=== PATIENT | female | born 1965 | race Caucasian/White ===

== ENCOUNTER → 2023-10-21 10:26 | Outpatient (REF) | payer OTHER, MEDICARE, SELFPAY | LOC: WDC 10:26 | PROVIDERS: ATTENDING PHYSICIAN Family Medicine | DX: Z12.31 Encounter for screening mammogram for malignant neoplasm of breast (principal) | CPT/HCPCS: 77063; 77067 ==

== ENCOUNTER → 2023-10-24 09:51 | Outpatient (REF) | payer OTHER, MEDICARE, SELFPAY | LOC: PAVMRI 09:51 | PROVIDERS: ATTENDING PHYSICIAN Pain Medicine Interventional Pain Medicine; FAMILY PHYSICIAN Family Medicine | DX: M54.16 Radiculopathy, lumbar region (principal) | CPT/HCPCS: 72148 ==

== ENCOUNTER → 2023-10-31 09:25 | Outpatient (REF) | payer OTHER, MEDICARE, SELFPAY | LOC: WDC 09:25 | PROVIDERS: ATTENDING PHYSICIAN Family Medicine | DX: R92.8 Other abnormal and inconclusive findings on diagnostic imaging of breast (principal) | CPT/HCPCS: 76642 ==

== ENCOUNTER → 2024-04-04 07:48 | Outpatient (REF) | payer OTHER, MEDICARE, SELFPAY | LOC: HWRAD 07:48 | PROVIDERS: ATTENDING PHYSICIAN Internal Medicine Endocrinology, Diabetes & Metabolism; FAMILY PHYSICIAN Family Medicine | DX: E04.1 Nontoxic single thyroid nodule (principal) | CPT/HCPCS: 76536 ==

== ENCOUNTER 2024-04-18 20:43 | Emergency (ER) | payer OTHER, MEDICARE, SELFPAY ==
[2024-04-18 20:44] VITALS: BP 133/62
[2024-04-18 21:26] VITALS: BP 119/48
[2024-04-18 21:55] LABS: % Basophils 0.2 % (0-2); % Immature Granulocytes 0.2 % (0-0.5); % Lymphocytes 26.3 % (20.5-51.1); % Monocytes 8.8 % (1.7-9.3); % Neutrophils 63.5 % (42.2-75.2); Absolute Eosinophils 0.1 10^3/uL (0-0.7); Absolute Lymphocytes 2.3 10^3/uL (1.2-3.4); Absolute Monocytes 0.8 10^3/uL (0.1-0.6); Absolute Neutrophils 5.6 10^3/uL (1.4-6.5); Hematocrit 36.5 % (37.0-47.0); Hemoglobin 13.1 g/dL (12.0-16.0); Mean Corp Hgb Conc. 35.9 g/dL (33.0-37.0); Mean Corpuscular Hgb 29.8 pg (27.0-31.0); Mean Platelet Volume 9.4 fL (7.4-10.4); Nucleated Red Blood Cells % 0 %; Platelet Count 174 10^3/uL (130-400); Red Cell Dist. Width 13.9 % (11.5-14.5); White Blood Cell Count 8.8 10^3/uL (4.8-10.8)
[2024-04-18 22:04] VITALS: BP 113/42
[2024-04-18 22:09] LABS: ALT (SGPT) 22 U/L (0-35); AST (SGOT) 23 U/L (14-36); Albumin 4.6 g/dl (3.5-5.0); Alkaline Phosphatase 66 U/L (38-126); Blood Urea Nitrogen 19 mg/dl (7-17); Calcium 9.5 mg/dl (8.4-10.2); Carbon Dioxide 23 mmol/L (22-30); Chloride 101 mmol/L (98-107); Glucose 154 mg/dl (70-99); Potassium 4.1 mmol/L (3.5-5.1); Sodium 139 mmol/L (135-145); Total Bilirubin 0.6 mg/dl (0.2-1.3); Total Protein 7.3 g/dl (6.3-8.2); eGFR > 60.00
[2024-04-18 22:16] LABS: Urine Albumin Negative (Neg - Trace); Urine Bilirubin Negative (Negative); Urine Character Clear (Clear); Urine Color Yellow; Urine Glucose 3+ (Negative); Urine Ketone Negative (Negative); Urine Leukocyte Negative (Negative); Urine Nitrite Negative (Negative); Urine Occult Blood Negative (Negative); Urine Specific Gravity 1.015 (<1.030); Urine Urobilinogen Negative (Neg - 1+)
[2024-04-18 22:17] LABS: NT-proBNP < 20.0 pg/ml
[2024-04-18 22:30] LABS: D-Dimer < 0.27 ug/mlFEU (0.00-0.50)
--- NOTE | 2024-04-18 22:47 | ED.GENMED ---
History of Present Illness
General
Chief Complaint: Breathing Problem
Source: patient
Time Seen by Provider: 04/18/24 21:36
History of Present Illness
History of Present Illness:
58-year-old female with past medical history of asthma/COPD, diabetes, GERD, bipolar disorder presenting to the emergency department for evaluation of shortness of breath that started last night associated with a pain to the left shoulder blade that
worsens with deep inspiration. Patient states there is no other symptoms and that this does not feel like a typical asthma or COPD flare for her. She denies any fevers or infectious symptoms, cough, hemoptysis, palpitations, chest pain, exertional
dyspnea, orthopnea, peripheral edema. Patient is also denying any recent travel, known sick contacts, use of exogenous estrogen. Family history noncontributory. Patient has not attempted any medications for relief.
Past History
Past History
ED Past Medical History: Asthma, COPD, GERD, IDDM, NIDDM, Hypothyroidism, Psychiatric and Other (Lumbar disc disease, sleep apnea, irritable bowel syndrome, GERD, anemia)
ED Past Surgical History: Gynecological (Benign breast biopsy) and Orthopedic (Right knee surgery)
Social History
Tobacco: Non-smoker
Alcohol: None
Drug: None
Personal:
Living: with family
Employment: Not employed
Family History
Family History: Diabetes; Negative Early CAD, CAD or Sudden
Review of Systems
Review of Systems
All Other Systems: ROS reviewed and negative except as documented in HPI and ROS
Phy Exam
Physical Exam
Physical Exam:
GENERAL: Alert , in no apparent distress
HEAD: NCAT
EYE: conjunctiva clear
NECK: Supple
ENT: o/p clr, mmm.
CARDIAC: Regular rate and rhythm
LUNGS: Clear breath sounds bilaterally, no acute respiratory distress, no wheezes/rales/rhonchi
NEUROLOGICAL: Alert and oriented
SKIN: Warm and dry, skin intact.
MUSCULOSKELETAL: well perfused.
PSYCH: Normal and appropriate interaction.
Scores
Heart Failure Risk
Heart Failure Risk Score: Not Applicable
Heart Score for Chest Pain Patients
STEMI patient?: Not applicable
Withdrawal Assessment of Alcohol
Withdrawal Assessment Completed?: Not applicable
Course
Orders/Labs/Results
Orders:
Orders
04/18/24 20:48
Electrocardiogram (*1) Urgent
Reason for Study: Shortness of Breath
EKG- Treatment ONCE
04/18/24 20:57
CMP [Comprehensive Metabolic Panel] Urgent
Complete Blood Count/With Diff Urgent
NT-proBNP Urgent
04/18/24 21:56
D-Dimer Urgent
04/18/24 22:08
Urinalysis Reflex To Culture Urgent
Date Specimen was Collected: 04/18/24
Time Specimen was Collected: 22:06
04/18/24 22:37
CR Chest - 2 Views Urgent
Comment:
Reason For Exam: left sided pleurisy
Abnormal Lab Results
04/18/24 04/18/24
20:57 22:08
Hct 36.5 L %
(37.0-47.0)
Absolute Monos (auto) 0.8 H 10^3/uL
(0.1-0.6)
BUN 19 H mg/dl
(7-17)
Glucose 154 H mg/dl
(70-99)
Urine Glucose 3+ A
(Negative)
04/18/24 20:57
04/18/24 20:57
Vital Signs
Initial and Last Documented VS:
Initial Vital Signs
Temp Pulse Resp BP Pulse Ox
98.2 F 91 16 133/62 98
04/18/24 20:44 04/18/24 20:44 04/18/24 20:44 04/18/24 20:44 04/18/24 20:44
Last Documented Vital Signs
Temp Pulse Resp BP Pulse Ox
98.2 F 80 20 113/42 98
04/18/24 20:44 04/18/24 23:00 04/18/24 23:22 04/18/24 22:04 04/18/24 23:21
MDM/Problems Addressed
Differential Diagnosis Includes:
pleurisy, COPD/asthma, pneumonia, PE, CHF, atypical ACS
MDM/Problems Addressed:
58-year-old female presenting to the emergency department for evaluation of shortness of breath with some left posterior pleurisy. Patient is hemodynamically stable and in no acute distress. Labs were initiated in triage and are all reassuring.
Based off of the pleurisy I did add a D-dimer onto patient's workup. Will order imaging based off D-dimer. Disposition pending.
Chronic conditions affecting care: COPD
*Radiology
Radiology exam reviewed: preliminary read by ED provider
*Pulse Oximetry
Patient hypoxic: no
*EKG
Interpreted by ED Provider?: Yes
Comparison EKG: no changes
Heart Rate: 84
Rate: normal
Rhythm: sinus
Ischemia: no ischemia
*Sales Agent Interpretation
Rate: normal
Rhythm: sinus
*Critical Care Note
Total Time (30-74mins, 75-104mins- exclusive of procedures): Not Applicable
Comment
Comment:
D-dimer is negative. Chest x-ray ordered. Disposition following chest x-ray.
Patient Management
Social determinants of health affecting care: Living situation and Strong social support
Escalation/DeEscalation of care consider admission/obs:
Patient's chest x-ray without any acute abnormalities. Her labs are all reassuring. At this time stable for discharge home and close outpatient follow-up with primary care provider. Aware of return precautions to the ER.
ED Attending Note
-
Portions of this chart may have been created with voice recognition software.� Occasional wrong word or��sound alike� substitutions may have occurred due to the inherent limitations of voice recognition software.
Discharge Plan
Departure
Patient Disposition: Home (Routine Discharge)
Date of Disposition: 04/18/24
Time of Disposition: 23:23
Patient with high blood pressure during this ER visit?: No
Discharge Problem:
Shortness of breath
Instructions: Shortness of Breath (Dyspnea) (DC)
Prescriptions:
No Action
metformin 1,000 MG tablet
1,000 mg PO BID
cabergoline 0.5 MG tablet
0.25 mg PO SA
levothyroxine 25 MCG tablet
75 mcg PO DAILY
multivitamin 1 EACH tablet
1 ea PO DAILY
beclomethasone dipropionate [Qvar] 8.7 GM aerosol
2 puff IH DAILY
ferrous sulfate [iron] 325 MG tablet
325 mg PO DAILY
esomeprazole magnesium [Nexium] 40 MG capsule,delayed release(DR/EC)
40 mg PO DAILY
albuterol sulfate 1 PUFF HFA aerosol inhaler
2 puff inhalation R Q4HPRN PRN (Reason: asthma)
repaglinide 1 MG tablet
1 mg PO MEALS
aripiprazole [Abilify] 30 MG tablet
30 mg PO HS
docosahexaenoic acid-epa 1 CAP capsule
2 cap PO DAILY
empagliflozin [Jardiance] 25 MG tablet
25 mg PO DAILY
insulin glargine U-300 conc [Toujeo SoloStar U-300 Insulin] 300 UNIT/ML insulin pen
44 unit SC HS
tramadol 50 MG tablet
50 mg PO Q6HPRN PRN (Reason: pain) Qty: 10 0RF
diazepam 5 MG tablet
5 mg PO TIDPRN PRN (Reason: spasm) Qty: 9 0RF
Referrals:
Ignacio Worthy DO [Family Provider] -
Interventions
Interventions:
*General Assessment Last Done: 04/18/24 20:44
ED- Fall Risk Assessment Last Done: 04/18/24 23:22
*ED COVID-19 Vaccine History Last Done: 04/18/24 20:44
ED- Cardiac Assessment Last Done: 04/18/24 23:22
ED- Pulmonary Assessment Last Done: 04/18/24 23:22
Discharge Date and Time
Print Language: ICELANDIC
[2024-04-18 23:21] VITALS: BMI 36.4
[2024-04-18 23:27] VITALS: BP 115/63
[2024-04-18] MEDS: TYLENOL 650 MG PO (23:43)
== END 2024-04-18 23:47 | disposition home or self-care (01) ==
LOC: EMR 20:43
PROVIDERS: Emergency Medicine; Physician Assistant Medical; EMERGENCY PHYSICIAN Emergency Medicine; FAMILY PHYSICIAN Family Medicine
DX: R06.02 Shortness of breath (principal); J44.89 Other specified chronic obstructive pulmonary disease; K21.9 Gastro-esophageal reflux disease without esophagitis; F31.9 Bipolar disorder, unspecified; E11.9 Type 2 diabetes mellitus without complications
CPT/HCPCS: 99285; 71046; 80053; 81003; 83880; 85025; 85379; 93005

== ENCOUNTER → 2024-05-25 09:48 | Outpatient (REF) | payer OTHER, MEDICARE, SELFPAY | LOC: HWRAD 09:48 | PROVIDERS: ATTENDING PHYSICIAN Nurse Practitioner Obstetrics & Gynecology; FAMILY PHYSICIAN Family Medicine | DX: N93.9 Abnormal uterine and vaginal bleeding, unspecified (principal) | CPT/HCPCS: 76830; 76856 ==

== ENCOUNTER → 2024-06-03 07:11 | Outpatient (REF) | payer OTHER, MEDICARE, SELFPAY | LOC: MRI 3T 07:11 | PROVIDERS: ATTENDING PHYSICIAN Psychiatry & Neurology Neurology; FAMILY PHYSICIAN Family Medicine | DX: G20.C Parkinsonism, unspecified (principal) | CPT/HCPCS: 70551 ==

== ENCOUNTER → 2024-06-11 10:44 | Outpatient (REF) | payer OTHER, MEDICARE, SELFPAY | LOC: WDC 10:44 | PROVIDERS: ATTENDING PHYSICIAN Nurse Practitioner Obstetrics & Gynecology; FAMILY PHYSICIAN Family Medicine | DX: R92.2 Inconclusive mammogram (principal) | CPT/HCPCS: 76641 ==

== ENCOUNTER 2024-07-26 22:26 | Emergency (ER) | payer OTHER, MEDICARE, SELFPAY ==
[2024-07-26 23:23] VITALS: BP 122/60
[2024-07-27 02:37] VITALS: BP 124/61
[2024-07-27 02:40] VITALS: BMI 34.0
[2024-07-27 03:00] VITALS: BP 120/49
[2024-07-27 04:00] VITALS: BP 111/77
--- NOTE | 2024-07-27 04:09 | ED.GENMED ---
History of Present Illness
General
Chief Complaint: Breathing Problem
Source: patient and family
Exam Limitations: none
Time Seen by Provider: 07/27/24 03:32
Nursing documentation reviewed up to this point in time: agreed with
History of Present Illness
History of Present Illness:
Pleasant 58-year-old female with known history of asthma presents with wheezing and asthma symptoms that have been much worse than normal. She states that she has been using her inhalers without relief of symptoms. This exacerbation has been going
on for 3 days. She states that she is coughing up yellowish sputum. Denies fever or chills. Reports no nausea or vomiting. Denies chest pain. Patient is diabetic and she is on insulin and oral agents. She states that she has a continuous
blood glucose monitor
Past History
Past History
ED Past Medical History: Asthma, COPD, GERD, IDDM, NIDDM, Hypothyroidism, Psychiatric and Other (Lumbar disc disease, sleep apnea, irritable bowel syndrome, GERD, anemia)
ED Past Surgical History: Gynecological (Benign breast biopsy) and Orthopedic (Right knee surgery)
Social History
Tobacco: Non-smoker
Alcohol: None
Drug: None
Personal:
Living: with family
Employment: Not employed
Family History
Family History: Diabetes; Negative Early CAD, CAD or Sudden
Review of Systems
Review of Systems
Allergies reviewed?: Yes
All Other Systems: ROS reviewed and negative except as documented in HPI and ROS
Constitutional: Reports no symptoms
EENT: Reports no symptoms
Respiratory: Reports trouble breathing
Cardiac: Reports no symptoms
ABD/GI: Reports no symptoms
: Reports no symptoms
Musculoskeletal: Reports no symptoms
Skin: Reports no symptoms
Neurological: Reports no symptoms
Endocrine: Reports no symptoms
Hematologic/Lymphatic: Reports no symptoms
Psychiatric: Reports no symptoms
Phy Exam
General Physical Exam
General Presentation: well appearing and no apparent distress
General Skin: warm and dry
General Habitus: normal
General Mental: alert
General Hydration: appears well hydrated
ENT Exam
ENT Exam: EOMI, pharynx normal, neck supple and normocephalic
Eye Exam
Eye Exam: PERRL, cornea clear and conjunctiva normal
Cardiovascular Exam
Cardiovascular Exam: regular rate/rhythm, no edema, no murmur and normal peripheral pulses
Pulmonary Exam
Pulmonary Exam: generalized wheezing
Breath Sounds: Wheeze: right upper (Right upper is worse than normal the rest)
Gastrointestinal Exam
Gastrointestinal Exam: normal bowel sounds, non tender, soft, no organomegaly, no pulsatile mass and non distended
Neurological Exam
Neurological Exam: alert, oriented x3, no motor deficits and speech normal
Musculoskeletal Exam
Musculoskeletal Exam: full ROM and no edema
Skin Exam
Skin Exam: normal color, warm/dry, no rash and no petechia
Psychiatric Exam
Psychiatric Exam: normal mood/affect
Scores
Heart Failure Risk
Heart Failure Risk Score: Not Applicable
Course
Orders/Labs/Results
Orders:
Orders
07/27/24 03:59
Dexamethasone Pf [Decadron] 10 mg PO NOW STA
Ipratropium/Albuterol Sulfate [Duoneb] 3 ml INH R NOW ONE
CR Chest - 2 Views Urgent
Comment:
Reason For Exam: dyspnea
Vital Signs
Initial and Last Documented VS:
Initial Vital Signs
Temp Pulse Resp BP Pulse Ox
98.4 F 89 16 122/60 98
07/26/24 23:23 07/26/24 23:23 07/26/24 23:23 07/26/24 23:23 07/26/24 23:23
Last Documented Vital Signs
Temp Pulse Resp BP Pulse Ox
98.4 F 89 16 119/60 93
07/26/24 23:23 07/26/24 23:23 07/26/24 23:23 07/27/24 06:00 07/27/24 06:01
*Critical Care Note
Total Time (30-74mins, 75-104mins- exclusive of procedures): Not Applicable
Update Note
Update Note:
Patient states that she is feeling somewhat better. She has enough albuterol and Breo at home. I will give her prednisone. She does have a continuous glucose monitor and we will adjust her insulin accordingly.
ED Attending Note
-
Portions of this chart may have been created with voice recognition software.� Occasional wrong word or��sound alike� substitutions may have occurred due to the inherent limitations of voice recognition software.
Discharge Plan
Departure
Patient Disposition: Home (Routine Discharge)
Date of Disposition: 07/27/24
Time of Disposition: 06:10
Patient with high blood pressure during this ER visit?: No
Discharge Problem:
Acute bronchitis
Instructions: Acute Bronchitis, Adult (DC)
Prescriptions:
New
prednisone 50 mg tablet
50 mg PO DAILY Qty: 4 0RF
No Action
metformin 1,000 MG tablet
1,000 mg PO BID
cabergoline 0.5 MG tablet
0.25 mg PO SA
levothyroxine 25 MCG tablet
75 mcg PO DAILY
multivitamin 1 EACH tablet
1 ea PO DAILY
beclomethasone dipropionate [Qvar] 8.7 GM aerosol
2 puff IH DAILY
ferrous sulfate [iron] 325 MG tablet
325 mg PO DAILY
esomeprazole magnesium [Nexium] 40 MG capsule,delayed release(DR/EC)
40 mg PO DAILY
albuterol sulfate 1 PUFF HFA aerosol inhaler
2 puff inhalation R Q4HPRN PRN (Reason: asthma)
repaglinide 1 MG tablet
1 mg PO MEALS
aripiprazole [Abilify] 30 MG tablet
30 mg PO HS
docosahexaenoic acid-epa 1 CAP capsule
2 cap PO DAILY
empagliflozin [Jardiance] 25 MG tablet
25 mg PO DAILY
insulin glargine U-300 conc [Toujeo SoloStar U-300 Insulin] 300 UNIT/ML insulin pen
44 unit SC HS
tramadol 50 MG tablet
50 mg PO Q6HPRN PRN (Reason: pain) Qty: 10 0RF
diazepam 5 MG tablet
5 mg PO TIDPRN PRN (Reason: spasm) Qty: 9 0RF
Referrals:
Ignacio Worthy DO [Family Provider] - Call in 1-3 days for appt
Activity Restrictions/Additional Instructions:
It was a pleasure meeting you and taking part in your care. We hope for your continued healing and wellness.
Please read discharge instructions in their entirety. However, they are for general education and may not describe your exact diagnosis at discharge. Information on your ER visit and medical conditions were discussed with you along with appropriate
follow up information...
If indicated, please take your medications as instructed and indicated on discharge paperwork.
Please schedule a follow up appointment as directed. Call to schedule an appointment
Please return to the emergency department with ANY change in, persisting, or worsening of symptoms. If any of your symptoms do not improve, or persist, or become more severe within 6-12 hours, please return to the emergency department for further
care.
Please return to the emergency department if you develop a headache, neck pain/stiffness, fever greater than 100.4F, chest pain, shortness of breath, persistent nausea, vomiting, slurred speech, difficulty walking, numbness/tingling, weakness, signs
of infection or any other symptoms that are worrisome to you.
If you have any questions or concerns please do not hesitate to call the Hospital at or E-mail me directly at [email or web address]
Interventions
Interventions:
*Risk Screen - Suicide Last Done: 07/26/24 23:23
*General Assessment Last Done: 07/27/24 02:35
*Neglect/Abuse Screening Last Done: 07/26/24 23:23
ED- Fall Risk Assessment Last Done: 07/27/24 02:35
*ED COVID-19 Vaccine History Last Done: 07/26/24 23:23
*Nursing Disposition Last Done: 07/27/24 06:11
ED- Cardiac Assessment Last Done: 07/27/24 02:35
ED- Pulmonary Assessment Last Done: 07/27/24 02:35
Discharge Date and Time
Discharge Date/Time: 07/27/24 06:18
Print Language: ZAMBIAN
[2024-07-27] MEDS: DUONEB 3 ML INH (04:16)
[2024-07-27] MEDS: DECADRON 10 MG PO (04:16)
[2024-07-27 05:00] VITALS: BP 112/50
[2024-07-27 06:00] VITALS: BP 119/60
== END 2024-07-27 06:18 | disposition home or self-care (01) ==
LOC: EMR 22:26
PROVIDERS: EMERGENCY PHYSICIAN Student in an Organized Health Care Education/Training Program; FAMILY PHYSICIAN Family Medicine
DX: J20.9 Acute bronchitis, unspecified (principal); J45.909 Unspecified asthma, uncomplicated
CPT/HCPCS: 99283; 94640; 71046

== ENCOUNTER → 2024-10-12 09:18 | Outpatient (REF) | payer OTHER, MEDICARE, SELFPAY | LOC: HWRAD 09:18 | PROVIDERS: ATTENDING PHYSICIAN Specialist; FAMILY PHYSICIAN Family Medicine | DX: M54.12 Radiculopathy, cervical region (principal); M50.30 Other cervical disc degeneration, unspecified cervical region | CPT/HCPCS: 72050 ==

== ENCOUNTER → 2024-10-25 08:46 | Outpatient (REF) | payer OTHER, MEDICARE, SELFPAY | LOC: WDC 08:46 | PROVIDERS: ATTENDING PHYSICIAN Family Medicine | DX: Z12.31 Encounter for screening mammogram for malignant neoplasm of breast (principal) | CPT/HCPCS: 77063; 77067 ==

== ENCOUNTER 2024-10-28 18:04 | Emergency (ER) | payer OTHER, MEDICARE, SELFPAY ==
[2024-10-28 18:07] VITALS: BP 133/50
--- NOTE | 2024-10-28 18:59 | ED.MUSCINJ ---
HPI-Injury
General
Chief Complaint: Musculo-Skeletal Complaint
Source: patient
Exam Limitations: none
Time Seen by Provider: 10/28/24 18:49
Nursing documentation reviewed up to this point in time: agreed with
History of Present Illness-Injury
Initial Injury comments:
59-year-old female IDDM, hypothyroid, anxiety, bipolar disorder, depression, asthma, GERD presents for pain in the posterior left thigh and left calf areas which start yesterday. She is having trouble stepping up the step due to the pain. She
denies back pain. She denies any overuse or injury. No recent travel. She tried Advil, Tylenol, heat with no relief of the pain.
Past History
Past History
ED Past Medical History: Asthma, COPD, GERD, IDDM, NIDDM, Hypothyroidism, Psychiatric and Other (Lumbar disc disease, sleep apnea, irritable bowel syndrome, GERD, anemia)
ED Past Surgical History: Gynecological (Benign breast biopsy) and Orthopedic (Right knee surgery)
Social History
Tobacco: Non-smoker
Alcohol: None
Drug: None
Personal:
Living: with family
Employment: Not employed
Family History
Family History: Diabetes; Negative Early CAD, CAD or Sudden
Review of Systems
Review of Systems
Allergies reviewed?: Yes
All Other Systems: ROS reviewed and negative except as documented in HPI and ROS
Constitutional: Denies fever
Respiratory: Denies trouble breathing
Cardiac: Denies chest pain
ABD/GI: Denies abdominal pain
: Denies incontinence
Musculoskeletal: Reports neck pain (Chronic neck pain, gets neck injections from pain management, last injections were 2 days ago.) and back pain (Chronic low back pain, last epidural was 2 months ago, she denies low back pain at this time)
Skin: Reports no symptoms
Neurological: Reports no symptoms
Phy Exam
Physical Exam
Physical Exam:
GENERAL: No acute distress. A&Ox3.
CONSTITUTIONAL: Afebrile.
EYES: clear, conjunctivae normal
ENMT: moist mucus membranes
RESPIRATORY: Regular respirations, nonlabored, lungs clear.
CARDIOVASCULAR: Regular rate and rhythm, no murmurs, no rubs.
GI: Soft, nontender, normal BS
MUSCULOSKELETAL: Moves with ease. Well perfused. Deep palpation of posterior left thigh immediately reproduces pain. No calf tenderness. No swelling or erythema. Distal neurovascular intact.
SKIN: Warm, dry, pink
PSYCH: Normal mood and affect. Well kept, interactive and appropriate
NEUROLOGIC: Awake, alert and oriented. No focal neurological deficits
Injury Course
Orders/Labs/Results
Orders:
Orders
10/28/24 18:59
US Periph Venous LOWER Ext LT Urgent
Comment:
Reason For Exam: pain posterior thigh and calf
10/28/24 20:28
Lidocaine [Lidocaine 4% Patch] 1 patch TOPICAL NOW STA
Apply Lidocaine patch(s) to:: Posterior left thigh
MDM/Problems Addressed
Differential Diagnosis Includes:
sciatica, DVT, muscle strain
MDM/Problems Addressed:
59-year-old female IDDM, hypothyroid, anxiety, bipolar disorder, depression, asthma, GERD presents for pain in the posterior left thigh and left calf areas which start yesterday. She is having trouble stepping up the step due to the pain. She
denies back pain. She denies any overuse or injury. No recent travel. She tried Advil, Tylenol, heat with no relief of the pain.
8:30 PM:
Ultrasound negative for DVT
Due to patient having diabetes and she states her blood sugar was in the 300s earlier today, she cannot have prednisone
No back pain, tenderness, no tenderness to buttock, immediately tender mid posterior thigh, no calf tenderness, less likely sciatica.
Since the pain just started yesterday I informed her that she could have pulled a hamstring and she should try cold compress to the area since that heating pad did not help, I gave her a written prescription for lidocaine patches and applied when
here tonight and encouraged her to give it some time.
Avoid activity that aggravates the pain.
She will follow-up with her doctor if she is not improving within the next week.
*Critical Care Note
Total Time (30-74mins, 75-104mins- exclusive of procedures): Not Applicable
ED Attending Note
-
Portions of this chart may have been created with voice recognition software.� Occasional wrong word or��sound alike� substitutions may have occurred due to the inherent limitations of voice recognition software.
Discharge Plan
Departure
Patient Disposition: Home (Routine Discharge)
Date of Disposition: 10/28/24
Time of Disposition: 20:29
Patient with high blood pressure during this ER visit?: No
Condition: Good
Discharge Problem:
Acute thigh pain
Instructions: Muscle Strain (DC), Using Cold for Pain, Sciatica - ED discharge instructions
Prescriptions:
New
lidocaine 4 % adhesive patch,medicated
1 patch topical DAILY PRN (Reason: Pain) Qty: 10 0RF
No Action
metformin 1,000 MG tablet
1,000 mg PO BID
cabergoline 0.5 MG tablet
0.25 mg PO SA
levothyroxine 25 MCG tablet
75 mcg PO DAILY
multivitamin 1 EACH tablet
1 ea PO DAILY
beclomethasone dipropionate [Qvar] 8.7 GM aerosol
2 puff IH DAILY
ferrous sulfate [iron] 325 MG tablet
325 mg PO DAILY
esomeprazole magnesium [Nexium] 40 MG capsule,delayed release(DR/EC)
40 mg PO DAILY
albuterol sulfate 1 PUFF HFA aerosol inhaler
2 puff inhalation R Q4HPRN PRN (Reason: asthma)
repaglinide 1 MG tablet
1 mg PO MEALS
aripiprazole [Abilify] 30 MG tablet
30 mg PO HS
docosahexaenoic acid-epa 1 CAP capsule
2 cap PO DAILY
empagliflozin [Jardiance] 25 MG tablet
25 mg PO DAILY
insulin glargine U-300 conc [Toujeo SoloStar U-300 Insulin] 300 UNIT/ML insulin pen
44 unit SC HS
tramadol 50 MG tablet
50 mg PO Q6HPRN PRN (Reason: pain) Qty: 10 0RF
diazepam 5 MG tablet
5 mg PO TIDPRN PRN (Reason: spasm) Qty: 9 0RF
prednisone 50 mg tablet
50 mg PO DAILY Qty: 4 0RF
Referrals:
Ignacio Worthy, DO [Family Provider] - As needed
Activity Restrictions/Additional Instructions:
As we discussed, your ultrasound is negative for a clot.
You may have pulled your hamstring muscle in which case cold compress 20 minutes off and on for the next 2 days may help as well as ibuprofen 600 mg, with food
If it is not a pulled muscle you may have sciatica which is an inflammatory problem and the ibuprofen and alternating warm compress with cold compress may help.
Lidocaine patch to the area daily
See your doctor in 1 week if you are not improving within the next week
Interventions
Interventions:
*Risk Screen - Suicide Last Done: 10/28/24 18:09
*General Assessment Last Done: 10/28/24 18:09
*Neglect/Abuse Screening Last Done: 10/28/24 18:09
*ED COVID-19 Vaccine History Last Done: 10/28/24 18:09
*Nursing Disposition Last Done: 10/28/24 20:47
ED-Musculoskeletal Assessment Last Done: 10/28/24 20:40
Discharge Date and Time
Discharge Date/Time: 10/28/24 20:47
Print Language: CYPRIOT
[2024-10-28 19:57] VITALS: BP 101/43
[2024-10-28] MEDS: LIDOCAINE 4% PATCH 1 PATCH TOPICAL (20:35)
== END 2024-10-28 20:47 | disposition home or self-care (01) ==
LOC: EMR 18:04
PROVIDERS: EMERGENCY PHYSICIAN Emergency Medicine; FAMILY PHYSICIAN Family Medicine
DX: M79.652 Pain in left thigh (principal); E03.9 Hypothyroidism, unspecified; E11.9 Type 2 diabetes mellitus without complications; K21.9 Gastro-esophageal reflux disease without esophagitis; J44.89 Other specified chronic obstructive pulmonary disease; Z79.4 Long term (current) use of insulin; G47.30 Sleep apnea, unspecified
CPT/HCPCS: 99284; 93971

== ENCOUNTER → 2024-11-11 11:57 | Outpatient (REF) | payer OTHER, MEDICARE, SELFPAY | LOC: MRI 3T 11:57 | PROVIDERS: ATTENDING PHYSICIAN Specialist; FAMILY PHYSICIAN Family Medicine | DX: M54.12 Radiculopathy, cervical region (principal); M50.30 Other cervical disc degeneration, unspecified cervical region | CPT/HCPCS: 72141 ==

== ENCOUNTER → 2024-12-28 09:25 | Outpatient (REF) | payer OTHER, MEDICARE, SELFPAY | LOC: EMG 09:25 | PROVIDERS: ATTENDING PHYSICIAN Orthopaedic Surgery Hand Surgery; FAMILY PHYSICIAN Family Medicine | DX: M79.642 Pain in left hand (principal); R20.0 Anesthesia of skin | CPT/HCPCS: 95886; 95909 ==

== ENCOUNTER → 2025-01-25 08:43 | Outpatient (REF) | payer OTHER, SELFPAY | LOC: HWRAD 08:43 | PROVIDERS: ATTENDING PHYSICIAN Otolaryngology Facial Plastic Surgery; FAMILY PHYSICIAN Family Medicine | DX: J32.2 Chronic ethmoidal sinusitis (principal); J34.3 Hypertrophy of nasal turbinates | CPT/HCPCS: 70486 ==

== ENCOUNTER 2025-02-16 18:52 | Emergency (ER) | payer OTHER, SELFPAY ==
[2025-02-16 19:04] VITALS: BP 113/64
--- NOTE | 2025-02-16 19:27 | ED.GENMED ---
History of Present Illness
General
Chief Complaint: Cardiac Symptoms
Source: patient
Exam Limitations: none
Time Seen by Provider: 02/16/25 19:27
History of Present Illness
History of Present Illness:
59-year-old female long history of episodes of heart racing that would last for 15 to 20 seconds. Been going on for 10 years. Has seen cardiology twice. Has had previous episodes. Usually happens every other day for 15 to 20 seconds. Today
happened multiple times. Some lightheadedness with the. No chest pain, shortness of breath or other complaints.
Past History
Past History
ED Past Medical History: Asthma, COPD, GERD, IDDM, NIDDM, Hypothyroidism, Psychiatric and Other (Lumbar disc disease, sleep apnea, irritable bowel syndrome, GERD, anemia)
ED Past Surgical History: Gynecological (Benign breast biopsy) and Orthopedic (Right knee surgery)
Social History
Tobacco: Non-smoker
Alcohol: None
Drug: None
Personal:
Living: with family
Employment: Not employed
Family History
Family History: Diabetes; Negative Early CAD, CAD or Sudden
Review of Systems
Review of Systems
All Other Systems: Not applicable
Constitutional: Denies fever
Respiratory: Denies trouble breathing
Cardiac: Denies chest pain or syncope
Phy Exam
Physical Exam
Physical Exam:
GENERAL: Alert and oriented in no apparent distress
EYE: Orbits normal.
NECK: Supple, no significant adenopathy.
ENT: Pharynx without erythema
CARDIAC: Regular rate and rhythm without any obvious murmurs.
LUNGS: Clear breath sounds,normal
ABDOMEN: Soft, without focal tenderness or distention
NEUROLOGICAL: Alert and oriented , grossly non-focal
SKIN: Warm and dry, no rash or lesion, no discoloration, skin intact.
MUSCULOSKELETAL: No edema,no deformity.Good color
PSYCH: Normal and appropriate interaction.
Course
Orders/Labs/Results
Orders:
Orders
02/16/25 18:54
Electrocardiogram (*1) Urgent
Reason for Study: Chest Pain
EKG- Treatment ONCE
02/16/25 19:51
Basic Metabolic Panel Urgent
Complete Blood Count/With Diff Urgent
TSH Reflex To Free T4 Urgent
02/16/25 20:23
CMP [Comprehensive Metabolic Panel] Urgent
Abnormal Lab Results
02/16/25 02/16/25
19:51 20:23
Hct 36.2 L %
(37.0-47.0)
BUN 18 H mg/dl
(7-17)
Glucose 140 H mg/dl 122 H mg/dl
(70-99) (70-99)
02/16/25 19:51
02/16/25 20:23
Vital Signs
Initial and Last Documented VS:
Initial Vital Signs
Temp Pulse Resp BP Pulse Ox
98.2 F 87 16 113/64 98
02/16/25 19:04 02/16/25 19:04 02/16/25 19:04 02/16/25 19:04 02/16/25 19:04
Last Documented Vital Signs
Temp Pulse Resp BP Pulse Ox
98.2 F 82 15 118/57 97
02/16/25 19:04 02/16/25 21:30 02/16/25 21:15 02/16/25 21:00 02/16/25 21:30
MDM/Problems Addressed
Differential Diagnosis Includes:
Patient describing intermittent episodes of heart racing brief periods. Has been a long-term issue but more frequent. While I was in the room she did have a PAC which she stated was the sensation. No chest pain no shortness of breath, not
describing ischemic symptoms. Will monitor check labs electrolytes thyroid.
*Pulse Oximetry
SaO2: 98
Oxygen Mode of Delivery: Room air
Patient hypoxic: no
*Coffee Farmer Interpretation
Rate: normal
Interpretation: normal
Heart Rate: 80
Rhythm: sinus
*Critical Care Note
Total Time (30-74mins, 75-104mins- exclusive of procedures): Not Applicable
Update Note
Update Note:
Patient had 1 PAC while I was in the room. No other arrhythmias. Stable for discharge to follow-up
ED Attending Note
-
Portions of this chart may have been created with voice recognition software.� Occasional wrong word or��sound alike� substitutions may have occurred due to the inherent limitations of voice recognition software.
Discharge Plan
Departure
Patient Disposition: Home (Routine Discharge)
Date of Disposition: 02/16/25
Time of Disposition: 22:12
Patient with high blood pressure during this ER visit?: No
Discharge Problem:
Palpitations, PACs
Instructions: Heart Palpitations
Prescriptions:
No Action
metformin 1,000 MG tablet
1,000 mg PO BID
cabergoline 0.5 MG tablet
0.25 mg PO SA
levothyroxine 25 MCG tablet
75 mcg PO DAILY
multivitamin 1 EACH tablet
1 ea PO DAILY
beclomethasone dipropionate [Qvar] 8.7 GM aerosol
2 puff IH DAILY
ferrous sulfate [iron] 325 MG tablet
325 mg PO DAILY
esomeprazole magnesium [Nexium] 40 MG capsule,delayed release(DR/EC)
40 mg PO DAILY
albuterol sulfate 1 PUFF HFA aerosol inhaler
2 puff inhalation R Q4HPRN PRN (Reason: asthma)
repaglinide 1 MG tablet
1 mg PO MEALS
aripiprazole [Abilify] 30 MG tablet
30 mg PO HS
docosahexaenoic acid-epa 1 CAP capsule
2 cap PO DAILY
empagliflozin [Jardiance] 25 MG tablet
25 mg PO DAILY
insulin glargine U-300 conc [Toujeo SoloStar U-300 Insulin] 300 UNIT/ML insulin pen
44 unit SC HS
tramadol 50 MG tablet
50 mg PO Q6HPRN PRN (Reason: pain) Qty: 10 0RF
diazepam 5 MG tablet
5 mg PO TIDPRN PRN (Reason: spasm) Qty: 9 0RF
prednisone 50 mg tablet
50 mg PO DAILY Qty: 4 0RF
lidocaine 4 % adhesive patch,medicated
1 patch topical DAILY PRN (Reason: Pain) Qty: 10 0RF
Referrals:
UNKNOWN - PT DOES,NOT KNOW [Family Provider]
Activity Restrictions/Additional Instructions:
Call your auto garage mechanic Tuesday for close follow-up
Interventions
Interventions:
*Risk Screen - Suicide Last Done: 02/16/25 19:38
*General Assessment Last Done: 02/16/25 19:38
*Neglect/Abuse Screening Last Done: 02/16/25 19:38
*ED- Fall Risk Assessment Last Done: 02/16/25 19:38
*ED COVID-19 Vaccine History Last Done: 02/16/25 19:38
ED- Cardiac Assessment Last Done: 02/16/25 19:40
ED- Pulmonary Assessment Last Done: 02/16/25 19:40
Discharge Date and Time
Print Language: SAMMARINESE
[2025-02-16 19:38] VITALS: BMI 33.1
[2025-02-16 19:39] VITALS: BP 137/47
[2025-02-16 20:00] VITALS: BP 124/58
[2025-02-16 20:08] LABS: Hematocrit 36.2 % (37.0-47.0); Hemoglobin 12.6 g/dL (12.0-16.0); Mean Corp Hgb Conc. 34.8 g/dL (33.0-37.0); Mean Corpuscular Volume 84.0 fL (81.0-99.0); Nucleated Red Blood Cells % 0 %; Red Cell Dist. Width 13.6 % (11.5-14.5)
[2025-02-16 20:16] LABS: Platelet Count 169 10^3/uL (130-400)
[2025-02-16 20:24] LABS: Blood Urea Nitrogen 18 mg/dl (7-17); Calcium 9.8 mg/dl (8.4-10.2); Carbon Dioxide 29 mmol/L (22-30); Chloride 102 mmol/L (98-107); Estimated Creatinine Clearance 68 ml/min; Glucose 140 mg/dl (70-99); Sodium 141 mmol/L (135-145); eGFR > 60.00
[2025-02-16 20:47] LABS: ALT (SGPT) 24 U/L (0-35); AST (SGOT) 29 U/L (14-36); Albumin 4.5 g/dl (3.5-5.0); Alkaline Phosphatase 59 U/L (38-126); Blood Urea Nitrogen 17 mg/dl (7-17); Calcium 9.4 mg/dl (8.4-10.2); Carbon Dioxide 30 mmol/L (22-30); Chloride 104 mmol/L (98-107); Estimated Creatinine Clearance 68 ml/min; Glucose 122 mg/dl (70-99); Potassium 3.8 mmol/L (3.5-5.1); Sodium 139 mmol/L (135-145); Total Protein 7.4 g/dl (6.3-8.2); eGFR > 60.00
[2025-02-16 21:00] VITALS: BP 118/57
[2025-02-16 22:00] VITALS: BP 126/55
== END 2025-02-16 22:46 | disposition home or self-care (01) ==
LOC: EMR 18:52
PROVIDERS: EMERGENCY PHYSICIAN Emergency Medicine
DX: R00.2 Palpitations (principal); I49.1 Atrial premature depolarization; E03.9 Hypothyroidism, unspecified; E11.9 Type 2 diabetes mellitus without complications; G47.30 Sleep apnea, unspecified; J44.89 Other specified chronic obstructive pulmonary disease; Z79.4 Long term (current) use of insulin
CPT/HCPCS: 99284; 80048; 80053; 84443; 85025; 93005

== ENCOUNTER 2025-03-07 20:43 | Emergency (ER) | payer OTHER, SELFPAY ==
[2025-03-07 20:58] VITALS: BP 121/48
[2025-03-07 21:36] LABS: Hematocrit 34.7 % (37.0-47.0); Hemoglobin 12.1 g/dL (12.0-16.0); Mean Corp Hgb Conc. 34.9 g/dL (33.0-37.0); Mean Corpuscular Volume 84.0 fL (81.0-99.0); Nucleated Red Blood Cells % 0 %; Platelet Count 160 10^3/uL (130-400); Red Cell Dist. Width 13.6 % (11.5-14.5)
[2025-03-07 22:04] LABS: ALT (SGPT) 22 U/L (0-35); AST (SGOT) 22 U/L (14-36); Albumin 4.8 g/dl (3.5-5.0); Alkaline Phosphatase 58 U/L (38-126); Blood Urea Nitrogen 17 mg/dl (7-17); Calcium 9.4 mg/dl (8.4-10.2); Carbon Dioxide 24 mmol/L (22-30); Chloride 104 mmol/L (98-107); Glucose 110 mg/dl (70-99); Potassium 3.9 mmol/L (3.5-5.1); Sodium 140 mmol/L (135-145); Total Protein 7.6 g/dl (6.3-8.2); eGFR > 60.00
--- NOTE | 2025-03-08 00:19 | ED.GENMED ---
History of Present Illness
General
Chief Complaint: Skin Problem
Source: patient
Exam Limitations: none
Time Seen by Provider: 03/08/25 00:17
Nursing documentation reviewed up to this point in time: agreed with
History of Present Illness
History of Present Illness:
Note:
CHIEF COMPLAINT(S)
Redness, pain, and swelling of the foot following a recent mole removal.
HISTORY OF PRESENT ILLNESS
The patient is a 59-year-old female with past medical history of asthma, COPD, coronary, insulin-dependent diabetes, anxiety, bipolar disorder, who presents with complaints of pain, redness, and swelling at a wound site following a mole removal
procedure done approximately one week ago by a physician group fitness assistant department head at a dermatology clinic. The patient reports that the pain began soon after the procedure, while the swelling and redness developed more recently, with the swelling noted yesterday
and the redness today. The area around the removal site is described as painful to touch, and the patient notes an inability to walk comfortably. There is no history of drainage from the site or any application of antibiotics. The patient denies
systemic symptoms such as fever or vomiting but reports numbness in the toes of the affected foot. The patient indicates that the dermatology provider advised applying Vaseline and a bandage to the site. She denies any recent long distance travel.
She has never had this before.
ADDITIONAL HISTORY OBTAINED FROM SOURCES OTHER THAN THE PATIENT
Per the dermatology providers instructions, the patient was advised to apply Vaseline and a bandage to the mole removal site.
ALLERGIES
Reported allergy to an unspecified antibiotic.
REVIEW OF SYSTEMS
- Skin: Redness and swelling at the wound site.
- Neurological: Reports numbness in toes of the affected foot.
- General: Denies fever and vomiting.
PHYSICAL EXAM
General: Alert, no acute distress.
Skin: Small ulcerated wound noted to the dorsum of the right foot, does not probe deep with Q-tip small area of surrounding erythema
Head: Normocephalic, atraumatic.
Neck: Supple, trachea midline.
Eye, Ears, Nose, Mouth, and Throat: Oral mucosa moist.
Cardiovascular: Normal peripheral perfusion, no edema in other areas.
Respiratory: Respirations are non-labored.
Gastrointestinal: Abdomen nondistended.
Peripheral vascular: 2+ DP and PT pulses bilaterally.
Musculoskeletal: No bony tenderness palpation of the bones of the right foot or lower extremity. Full range of motion.
Neurological: Alert and oriented to person, place, time, and situation
Psychiatric: Cooperative, appropriate mood and affect.
PROBLEM LIST
Acute:
- Possible infection of the mole removal site with redness, pain, and swelling.
PLAN
- Initiate antibiotic treatment with Cephalexin (Keflex) to cover common skin bacteria.
- Apply bacitracin and dress the wound.
- Patient advised to monitor the site for increased redness or spread, to return if symptoms worsen or if fever develops.
- Recommend follow-up with the manager neonatal to ensure proper healing.
- Provide patient education on wound care including application of a new dressing as instructed.
DIFFERENTIAL DIAGNOSIS
The differential diagnosis includes, in no particular order and is not limited to:
- Localized skin infection/cellulitis
- Wound infection post-procedure
- Contact dermatitis
- Deep vein thrombosis (unlikely given lack of systemic symptoms, but considered)
- Peripheral neuropathy due to numbness
- Lymphedema
- Allergic reaction to dressing or topical agent
- Hematoma or localized bleeding
- Incomplete healing of surgical site
- Delayed hypersensitivity reaction
CHART REVIEW
Reviewed ER/documentation from 06/18/2025 patient seen for PACs
Reviewed ER physician condition 08/08/2015 patient seen by Ortho for potential plans to get right knee partial medial meniscectomy
MDM/DISPOSITION
The patient is a 59-year-old female with past medical history of asthma, COPD, coronary, insulin-dependent diabetes, anxiety, bipolar disorder, who presents with complaints of pain, redness, and swelling at a wound site following a mole removal
procedure done approximately one week ago by a physician group fitness assistant department head at a dermatology clinic. On exam, she has a small ulcer noted to the dorsum of the left foot with surrounding erythema. Suspect cellulitis. Will initiate Keflex. Patient has no
fevers or chills, her blood work is unremarkable. Discussed tricked return precautions and follow-up with dermatology. Patient stable for discharge
Past History
Past History
ED Past Medical History: Asthma, COPD, GERD, IDDM, NIDDM, Hypothyroidism, Psychiatric and Other (Lumbar disc disease, sleep apnea, irritable bowel syndrome, GERD, anemia)
ED Past Surgical History: Gynecological (Benign breast biopsy) and Orthopedic (Right knee surgery)
Social History
Tobacco: Non-smoker
Alcohol: None
Drug: None
Personal:
Living: with family
Employment: Not employed
Family History
Family History: Diabetes; Negative Early CAD, CAD or Sudden
Review of Systems
Review of Systems
All Other Systems: ROS reviewed and negative except as documented in HPI and ROS
Phy Exam
Physical Exam
Physical Exam:
see hpi
Sepsis
Sepsis Screening
Sepsis Assessment: Sepsis Ruled Out
Sepsis Screen
Sepsis Screen: Sepsis Ruled Out
Date: 03/08/25
Time: 07:39
Course
Orders/Labs/Results
Orders:
Orders
03/07/25 21:15
Blood Culture Q20M
ISABELLE Source: Blood/Venous
Specimen Description:
Comment: Urgent from separate sites. If patient screens positive for possible sepsis
03/07/25 21:25
Complete Blood Count/With Diff Urgent
Comprehensive Metabolic Panel Urgent
Lactic Acid Q4H
Comment: ON ICE, CANCEL 2ND ORDER IF FIRST LACTIC ACID LEVEL <2
Blood Culture Q20M
ISABELLE Source: Blood/Venous
Specimen Description:
Comment: Urgent from separate sites. If patient screens positive for possible sepsis
Abnormal Lab Results
03/07/25
21:25
RBC 4.13 L 10^6/uL
(4.20-5.40)
Hct 34.7 L %
(37.0-47.0)
Glucose 110 H mg/dl
(70-99)
03/07/25 21:25
03/07/25 21:25
Vital Signs
Initial and Last Documented VS:
Initial Vital Signs
Temp Pulse Resp BP Pulse Ox
98.3 F 87 16 121/48 99
03/07/25 20:58 03/07/25 20:58 03/07/25 20:58 03/07/25 20:58 03/07/25 20:58
Last Documented Vital Signs
Temp Pulse Resp BP Pulse Ox
97.9 F 74 16 119/51 98
03/08/25 00:57 03/08/25 00:57 03/08/25 00:57 03/08/25 00:57 03/08/25 00:57
*Pulse Oximetry
SaO2: 99
Oxygen Mode of Delivery: Room air
Patient hypoxic: no
*Critical Care Note
Total Time (30-74mins, 75-104mins- exclusive of procedures): Not Applicable
ED Attending Note
-
Portions of this chart may have been created with voice recognition software.� Occasional wrong word or��sound alike� substitutions may have occurred due to the inherent limitations of voice recognition software.
Discharge Plan
Departure
Patient Disposition: Home (Routine Discharge)
Date of Disposition: 03/08/25
Time of Disposition: 01:13
Patient with high blood pressure during this ER visit?: Yes
Condition: Good
Discharge Problem:
Cellulitis of foot
Instructions: Wound Care (DC), Cellulitis (Skin Infection), Adult (DC), BLOOD PRESSURE
Prescriptions:
New
cephalexin 500 mg capsule
500 mg PO QID 10 Days Qty: 40 0RF
No Action
metformin 1,000 MG tablet
1,000 mg PO BID
levothyroxine 25 MCG tablet
75 mcg PO DAILY
multivitamin 1 EACH tablet
1 ea PO DAILY
Qvar 8.7 GM aerosol
2 puff IH DAILY
esomeprazole magnesium [Nexium] 40 MG capsule,delayed release(DR/EC)
40 mg PO DAILY
albuterol sulfate 1 PUFF HFA aerosol inhaler
2 puff inhalation R Q4HPRN PRN (Reason: asthma)
Jardiance 25 MG tablet
25 mg PO DAILY
insulin glargine U-300 conc [Toujeo SoloStar U-300 Insulin] 300 UNIT/ML insulin pen
10 unit SC HS
lidocaine 4 % adhesive patch,medicated
1 patch topical DAILY PRN (Reason: Pain) Qty: 10 0RF
ziprasidone HCl [Geodon] 20 mg Capsule
20 mg PO BID
Rx Instructions:
20 in the AM; 40 in the afternoon
diltiazem HCl 120 mg Capsule,Extended Release 24 Hr
120 mg PO DAILY
prucalopride [Motegrity] 2 mg Tablet
2 mg PO DAILY
cetirizine [Zyrtec] 10 mg Tablet
10 mg PO DAILY
famotidine 40 mg Tablet
40 mg PO HS
meclizine 12.5 mg Tablet
12.5 mg PO TID
montelukast 10 mg Tablet
10 mg PO DAILY
loratadine [Claritin] 10 mg Tablet
10 mg PO DAILY
bupropion HCl 150 mg Tablet Extended Release 24 Hr
150 mg PO DAILY
buspirone 15 mg Capsule
15 mg PO BID
Referrals:
Ignacio Worthy DO [Family Provider, Family Practice]
Activity Restrictions/Additional Instructions:
Keflex has been sent to your pharmacy. Please take 1 tablet 4 times daily for 10 days. Please call your manager neonatal tomorrow to schedule follow-up appointment. PLEASE RETURN EMERGENCY DEPARTMENT SHOULD YOU DEVELOP SPREADING OF THE REDNESS UP
THE LEG, SWELLING OF THE LEG, INCREASING PAIN, PURULENT DRAINAGE FROM THE WOUND, FEVERS OR CHILLS, CHEST PAIN, SHORTNESS OF BREATH, OR ANY OTHER SIGNS OR SYMPTOMS RECENTLY.
Please keep today's dressing in place for 24 hours. After 24 hours, you can change dressing as needed. You can use nonadherent pads with Kerlix wrap and shower as normal. You take Tylenol as needed for pain.
Interventions
Interventions:
*Risk Screen - Suicide Last Done: 03/07/25 20:58
*General Assessment Last Done: 03/07/25 20:58
*Neglect/Abuse Screening Last Done: 03/07/25 20:58
*ED- Fall Risk Assessment Last Done: 03/07/25 20:58
*ED COVID-19 Vaccine History Last Done: 03/07/25 20:58
*Nursing Disposition Last Done: 03/08/25 01:30
ED-Skin Assessment Last Done: 03/08/25 01:30
Discharge Date and Time
Discharge Date/Time: 03/08/25 01:30
Print Language: BRAZILIAN
[2025-03-08 00:54] VITALS: BMI 31.1
[2025-03-08 00:57] VITALS: BP 119/51
== END 2025-03-08 01:30 | disposition home or self-care (01) ==
LOC: EMR 20:43
PROVIDERS: Emergency Medicine; EMERGENCY PHYSICIAN Emergency Medicine; FAMILY PHYSICIAN Family Medicine
DX: T81.49XA Infection following a procedure, other surgical site, initial encounter (principal); L03.115 Cellulitis of right lower limb; Y83.8 Other surgical procedures as the cause of abnormal reaction of the patient, or of later complication, without mention of misadventure at the time of the procedure; E03.9 Hypothyroidism, unspecified; E11.9 Type 2 diabetes mellitus without complications; G47.30 Sleep apnea, unspecified; J44.89 Other specified chronic obstructive pulmonary disease; Z79.4 Long term (current) use of insulin; Z88.1 Allergy status to other antibiotic agents
CPT/HCPCS: 99283; 80053; 83605; 85025; 87040

== ENCOUNTER → 2025-03-21 07:03 | Outpatient (REF) | payer OTHER, SELFPAY | LOC: MRI 3T 07:03 | PROVIDERS: ATTENDING PHYSICIAN Podiatrist Foot & Ankle Surgery; FAMILY PHYSICIAN Family Medicine | DX: M19.071 Primary osteoarthritis, right ankle and foot (principal); G57.61 Lesion of plantar nerve, right lower limb; M24.671 Ankylosis, right ankle | CPT/HCPCS: 73718; 73721 ==

== ENCOUNTER → 2025-05-01 14:40 | Outpatient (REF) | payer OTHER, SELFPAY | LOC: RAD 14:40 | PROVIDERS: ATTENDING PHYSICIAN Nurse Practitioner Family; FAMILY PHYSICIAN Family Medicine | DX: R09.89 Other specified symptoms and signs involving the circulatory and respiratory systems (principal) | CPT/HCPCS: 93880 ==

== ENCOUNTER → 2025-05-15 12:03 | Outpatient (REF) | payer OTHER, SELFPAY | LOC: HWRAD 12:03 | PROVIDERS: ATTENDING PHYSICIAN Family Medicine | DX: R05.2 Subacute cough (principal) | CPT/HCPCS: 71046 ==

== ENCOUNTER 2025-05-30 21:16 | Emergency (ER) | payer OTHER, SELFPAY ==
[2025-05-30 21:21] VITALS: BP 124/64
[2025-05-30 21:35] VITALS: BMI 32.1
--- NOTE | 2025-05-30 21:36 | ED.GENMED ---
History of Present Illness
General
Chief Complaint: Cold/Flu/URI Symptoms
Source: patient and spouse
Exam Limitations: none
Time Seen by Provider: 05/30/25 21:29
Nursing documentation reviewed up to this point in time: agreed with
History of Present Illness
History of Present Illness:
59-year-old female with a past medical history of asthma and COPD, GERD, diabetes who presents to the emergency department for evaluation of cough, shortness of breath. Patient reports onset of symptoms 4 weeks ago now and they have been constant
and unremitting. She reports a hacking cough productive of yellowish sputum. She reports feeling short of breath particular with activity. She reports that she has some tightness in the chest. She denies any fever or chills. She denies any
other acute complaints. She says that last week her primary doctor sent her for an x-ray which was apparently normal. She says that her doctor wrote her for a prescription of antibiotics (patient cannot recall which one) and a course of prednisone
and she finished both of these after a week (course completed this past Tuesday). She says she had no improvement with these therapies and was supposed to have a CT of her chest next week but she felt she needed emergent evaluation given lack of
improvement in symptoms.
Past History
Past History
ED Past Medical History: Asthma, COPD, GERD, IDDM, NIDDM, Hypothyroidism, Psychiatric and Other (Lumbar disc disease, sleep apnea, irritable bowel syndrome, GERD, anemia)
ED Past Surgical History: Gynecological (Benign breast biopsy) and Orthopedic (Right knee surgery)
Social History
Tobacco: Non-smoker
Alcohol: None
Drug: None
Personal:
Living: with family
Employment: Not employed
Family History
Family History: Diabetes; Negative Early CAD, CAD or Sudden
Review of Systems
Review of Systems
All Other Systems: ROS reviewed and negative except as documented in HPI and ROS
Constitutional: Denies fever or chills
Respiratory: Reports cough and trouble breathing
Cardiac: Reports chest pain
ABD/GI: Denies abdominal pain, nausea or vomiting
: Denies flank pain
Musculoskeletal: Denies edema
Neurological: Denies dizzy or headache
Phy Exam
Physical Exam
Physical Exam:
General: Awake, alert, oriented x3; no acute distress
Head: Normocephalic, atraumatic
Eyes: Conjunctiva normal, sclera anicteric
Throat: Airway intact, handling secretions
Neck: Trachea midline, no JVD
Lungs: Breathing comfortably with no tachypnea or hypoxia no evidence of respiratory distress; her lungs are clear to auscultation bilaterally, no wheezing, rales, rhonchi; occasional cough
Heart: Regular rate and rhythm, no murmurs, gallops, or rubs
Abd: Soft, non distended, nontender
Neuro: Grossly intact and ambulatory here in the ER
Skin: Warm and dry
Extremities: No edema in extremities, equal pulses in all extremities
Scores
Heart Failure Risk
Heart Failure Risk Score: Not Applicable
Heart Score for Chest Pain Patients
STEMI patient?: Not applicable
Withdrawal Assessment of Alcohol
Withdrawal Assessment Completed?: Not applicable
Course
Orders/Labs/Results
Orders:
Orders
05/30/25 21:35
CT Chest W/o Iv Contrast Urgent
Comment:
Reason For Exam: cough, SOB
05/30/25 21:43
COVID-19 Antigen Urgent
Source: Nasal Swab
Complete Blood Count/With Diff Urgent
Comprehensive Metabolic Panel Urgent
Influenza A+B Rapid Molecular Urgent
ISABELLE Source: Nasal Swab
Specimen Description:
05/30/25 22:40
Prednisone [Deltasone] 50 mg PO NOW STA
Abnormal Lab Results
05/30/25
21:43
RBC 4.13 L 10^6/uL
(4.20-5.40)
Hct 36.0 L %
(37.0-47.0)
Absolute Lymphs (auto) 3.7 H 10^3/uL
(1.2-3.4)
Absolute Monos (auto) 0.7 H 10^3/uL
(0.1-0.6)
Carbon Dioxide 31 H mmol/L
(22-30)
BUN 19 H mg/dl
(7-17)
Glucose 172 H mg/dl
(70-99)
05/30/25 21:43
05/30/25 21:43
Vital Signs
Initial and Last Documented VS:
Initial Vital Signs
Temp Pulse Resp BP Pulse Ox
36.6 C 80 20 124/64 96
05/30/25 21:21 05/30/25 21:21 05/30/25 21:21 05/30/25 21:21 05/30/25 21:21
Last Documented Vital Signs
Temp Pulse Resp BP Pulse Ox
36.6 C 83 17 111/48 95
05/30/25 21:21 05/30/25 22:01 05/30/25 21:45 05/30/25 22:01 05/30/25 22:01
MDM/Problems Addressed
Differential Diagnosis Includes:
Bronchitis/COPD exacerbation, pneumonia, postnasal drip/GERD
MDM/Problems Addressed:
59-year-old female presents to the ER for evaluation of productive cough x 4-week associated with shortness of breath and chest tightness. Did not improve with outpatient antibiotic and steroid course last week. Vitals and exam are within
acceptable range. Physical exam is as noted. Plan to check labs, EKG, viral swabs. Check CT chest to evaluate for occult pneumonia as patient says she was scheduled to receive this after reportedly normal chest x-ray recently. Reassess after the
above.
Labs reviewed: CBC and CMP no clinically significant abnormalities. COVID and flu negative. CT chest shows no acute abnormalities. Overall suspect that this is a mild COPD exacerbation. Will plan to start on steroid taper, prescribed albuterol
nebulizer and patient can follow-up with her primary doctor as scheduled this coming Tuesday. Patient comfortable with this plan. All questions answered.
Chronic conditions affecting care:
COPD/asthma
*Radiology
Radiology exam reviewed: radiology read reviewed
*Pulse Oximetry
SaO2: 96
Oxygen Mode of Delivery: Room air
Patient hypoxic: no (96%)
*Critical Care Note
Total Time (30-74mins, 75-104mins- exclusive of procedures): Not Applicable
Data Reviewed
Source: patient and spouse
ED Attending Note
-
Portions of this chart may have been created with voice recognition software.� Occasional wrong word or��sound alike� substitutions may have occurred due to the inherent limitations of voice recognition software.
Discharge Plan
Departure
Patient Disposition: Home (Routine Discharge)
Date of Disposition: 05/30/25
Time of Disposition: 22:39
Patient with high blood pressure during this ER visit?: No
Discharge Problem:
COPD exacerbation
Instructions: COPD exacerbation (DC)
Prescriptions:
New
prednisone 10 mg Tablet
See Rx Instructions .ROUTE .COMPLEX Qty: 45 0RF
Rx Instructions:
Take By Mouth:
50 mg daily x3 days, 40 mg daily x3 days,
30 mg daily x3 days, 20 mg daily x3 days,
10 mg daily x3 days
albuterol sulfate 2.5 mg /3 mL (0.083 %) solution for nebulization
2.5 mg inhalation Q4H PRN (Reason: shortness of breath or wheezing) Qty: 75 0RF
(DME) nebulizer and compressor Device
See Rx Instructions .Route Qty: 1 0RF
Rx Instructions:
As directed
No Action
metformin 1,000 MG tablet
1,000 mg PO BID
levothyroxine 25 MCG tablet
75 mcg PO DAILY
multivitamin 1 EACH tablet
1 ea PO DAILY
Qvar 8.7 GM aerosol
2 puff IH DAILY
esomeprazole magnesium [Nexium] 40 MG capsule,delayed release(DR/EC)
40 mg PO DAILY
albuterol sulfate 1 PUFF HFA aerosol inhaler
2 puff inhalation R Q4HPRN PRN (Reason: asthma)
Jardiance 25 MG tablet
25 mg PO DAILY
insulin glargine U-300 conc [Toujeo SoloStar U-300 Insulin] 300 UNIT/ML insulin pen
10 unit SC HS
lidocaine 4 % adhesive patch,medicated
1 patch topical DAILY PRN (Reason: Pain) Qty: 10 0RF
ziprasidone HCl [Geodon] 20 mg Capsule
20 mg PO BID
Rx Instructions:
20 in the AM; 40 in the afternoon
diltiazem HCl 120 mg Capsule,Extended Release 24 Hr
120 mg PO DAILY
prucalopride [Motegrity] 2 mg Tablet
2 mg PO DAILY
cetirizine [Zyrtec] 10 mg Tablet
10 mg PO DAILY
famotidine 40 mg Tablet
40 mg PO HS
meclizine 12.5 mg Tablet
12.5 mg PO TID
montelukast 10 mg Tablet
10 mg PO DAILY
loratadine [Claritin] 10 mg Tablet
10 mg PO DAILY
bupropion HCl 150 mg Tablet Extended Release 24 Hr
150 mg PO DAILY
buspirone 15 mg Capsule
15 mg PO BID
cephalexin 500 mg capsule
500 mg PO QID 10 Days Qty: 40 0RF
Referrals:
Jazmin Boland MD [Family Provider, Family Practice] - 06/04/25
Activity Restrictions/Additional Instructions:
Thank you for visiting the Emergency Department at [facility].
1. Please schedule a follow up appointment as directed. Call first thing tomorrow morning to make an appointment.
2. If indicated, please take your medications as instructed and indicated on discharge paperwork.
3. If any of your symptoms do not improve, or persist, or become more severe within 6-12 hours, please return to the emergency department for further care.
4. Please return to the emergency department if you develop a headache, neck pain/stiffness, fever greater than 100.4F, chest pain, shortness of breath, persistent nausea, vomiting, slurred speech, difficulty walking, numbness/tingling, weakness,
signs of infection or any other symptoms that are worrisome to you.
Please call [phone] if you have any questions.
Interventions
Interventions:
*Risk Screen - Suicide Last Done: 05/30/25 21:24
*General Assessment Last Done: 05/30/25 21:24
*Neglect/Abuse Screening Last Done: 05/30/25 21:24
*ED- Fall Risk Assessment Last Done: 05/30/25 21:24
*ED COVID-19 Vaccine History Last Done: 05/30/25 21:24
*ED Influenza Vaccine History Last Done: 05/30/25 21:24
ED- Pulmonary Assessment Last Done: 05/30/25 21:44
Discharge Date and Time
Print Language: DJIBOUTIAN
[2025-05-30 21:46] VITALS: BP 108/54
[2025-05-30 22:01] VITALS: BP 111/48
[2025-05-30 22:06] LABS: Hematocrit 36.0 % (37.0-47.0); Hemoglobin 12.1 g/dL (12.0-16.0); Mean Corp Hgb Conc. 33.6 g/dL (33.0-37.0); Mean Corpuscular Volume 87.2 fL (81.0-99.0); Nucleated Red Blood Cells % 0 %; Platelet Count 163 10^3/uL (130-400); Red Cell Dist. Width 14.5 % (11.5-14.5)
[2025-05-30 22:17] LABS: COVID-19 Antigen Negative (Negative)
[2025-05-30 22:24] LABS: ALT (SGPT) 24 U/L (0-35); AST (SGOT) 21 U/L (14-36); Albumin 4.4 g/dl (3.5-5.0); Alkaline Phosphatase 64 U/L (38-126); Blood Urea Nitrogen 19 mg/dl (7-17); Calcium 9.3 mg/dl (8.4-10.2); Carbon Dioxide 31 mmol/L (22-30); Chloride 100 mmol/L (98-107); Estimated Creatinine Clearance 76 ml/min; Glucose 172 mg/dl (70-99); Potassium 3.8 mmol/L (3.5-5.1); Sodium 139 mmol/L (135-145); Total Protein 7.2 g/dl (6.3-8.2); eGFR > 60.00
[2025-05-30] MEDS: DELTASONE 50 MG PO (22:52)
== END 2025-05-30 23:04 | disposition home or self-care (01) ==
LOC: EMR 21:16
PROVIDERS: EMERGENCY PHYSICIAN Emergency Medicine; FAMILY PHYSICIAN Family Medicine
DX: J44.1 Chronic obstructive pulmonary disease with (acute) exacerbation (principal); E03.9 Hypothyroidism, unspecified; E11.9 Type 2 diabetes mellitus without complications; G47.30 Sleep apnea, unspecified; Z11.52 Encounter for screening for COVID-19
CPT/HCPCS: 99284; 71250; 80053; 85025; 87502; 87811; 93005